=== PATIENT | male | born 1940 | race Caucasian/White ===

== ENCOUNTER 2020-09-13 15:06 | Inpatient (IN) ==
[2020-09-15] MEDS ORDERED: *HR* Dextrose 50 % in Water (Vial) 50 ML VIAL IVP PRN (19:58)
[2020-09-15] MEDS ORDERED: Dextrose Gel 15 GM/37.5 ML TUBE PO PRN ×2 (19:58)
[2020-09-15] MEDS ORDERED: D5% in Water 1,000 ML IVC PRN (19:58)
[2020-09-15] MEDS ORDERED: Insulin DETEMIR 100 UNIT/ML per UNIT SUBQ ONE (21:00)
[2020-09-15] MEDS: Sennosides/Docusate Sodium TABLET PO SCH (22:16)
[2020-09-16 06:23] LABS: Basophils # 0.1 K/mcL (0.0-0.2); Basophils % 0.7 %; Eosinophils # 0.7 K/mcL (0.0-0.6); Hematocrit 31.3 % (37.5-50.1); Immature Granulocytes % 0.3 % (0-4); Lymphocytes # 1.2 K/mcL (0.6-4.6); Lymphocytes % 14.1 %; Mean Corpuscular HGB Conc 31.9 g/dL (31.6-35.5); Mean Corpuscular Hemoglobin 27.6 pg (28.0-33.3); Mean Corpuscular Volume 86.5 fL (83.0-100.0); Monocytes # 0.8 K/mcL (0.0-1.3); Monocytes % 9.6 %; Neutrophils # 5.9 K/mcL (1.6-8.9); Platelet Count 226 K/mcL (140-400); Red Blood Count 3.62 M/mcL (4.19-5.50); Segmented Neutrophils % 67.3 %; White Blood Count 8.8 K/mcL (4.3-11.1)
[2020-09-16 06:36] LABS: BUN/Creatinine Ratio 18 (6-26); Blood Urea Nitrogen 9 mg/dL (8-23); Calcium 7.9 mg/dL (8.6-10.3); Carbon Dioxide 27 mEq/L (23-29); Chloride 102 mEq/L (98-107); Glucose 135 mg/dL (70-105); Osmolality,Calculated 285 (280-300); Potassium 3.2 mEq/L (3.5-5.1); Sodium 137 mEq/L (136-145); eGFR For African Americans > 60 (> 60); eGFR For Non-African Americans > 60 (> 60)
[2020-09-16] MEDS: Insulin LISPRO 300 UNITS/3 ML VIAL SUBQ SCH ×3 (09:01→16:25)
[2020-09-16] MEDS: GlipiZIDE 5 MG TABLET PO SCH ×2 (09:12→17:24)
[2020-09-16] MEDS: Sennosides/Docusate Sodium TABLET PO SCH ×2 (09:12→20:58)
[2020-09-16] MEDS: amLODIPine 5 MG TABLET PO SCH (09:12)
[2020-09-16] MEDS: Loratadine 10 MG TABLET PO SCH (09:12)
[2020-09-16] MEDS: lisinopriL 20 MG TABLET PO SCH (09:12)
[2020-09-16] MEDS: Multivit/Ca/Min/Fe/FA 1 TAB TABLET PO SCH (09:12)
[2020-09-16] MEDS: *HR* Metformin 500 MG TABLET PO SCH ×2 (09:12→17:24)
[2020-09-16] MEDS: Aspirin Enteric Coated 81 MG Tablet PO SCH (09:12)
[2020-09-16] MEDS: allopurinoL 300 MG TABLET PO SCH (09:12)
[2020-09-16] MEDS: Cholecalciferol (D-3) 1,000 UNIT (25MCG) TABLET PO SCH (09:13)
[2020-09-16] MEDS: Famotidine 20 MG TABLET PO SCH (09:13)
[2020-09-16] MEDS: Metoprolol XL (24 HR) Succ 50 MG TAB.ER.24H PO SCH (09:13)
[2020-09-16] MEDS: Insulin DETEMIR 100 UNIT/ML X5UNITS SUBQ SCH ×2 (09:13→20:59)
[2020-09-16 12:53] LABS: Estimated Average Glucose 174 mg/dl; Hemoglobin A1C 7.7 %
[2020-09-17] MEDS: *HR* Enoxaparin 40 MG/0.4 ML SYRINGE SQ SCH (04:46)
[2020-09-17 05:55] LABS: Basophils # 0.1 K/mcL (0.0-0.2); Basophils % 0.9 %; Eosinophils # 0.9 K/mcL (0.0-0.6); Eosinophils % 8.1 %; Hematocrit 32.4 % (37.5-50.1); Hemoglobin 10.5 g/dL (12.9-16.9); Immature Granulocytes % 0.3 % (0-4); Lymphocytes # 1.6 K/mcL (0.6-4.6); Lymphocytes % 14.6 %; Mean Corpuscular HGB Conc 32.4 g/dL (31.6-35.5); Mean Corpuscular Hemoglobin 27.9 pg (28.0-33.3); Mean Corpuscular Volume 85.9 fL (83.0-100.0); Mean Platelet Volume 9.6 fL (9.4-12.4); Monocytes # 1.1 K/mcL (0.0-1.3); Monocytes % 10.1 %; Platelet Count 259 K/mcL (140-400); Red Blood Count 3.77 M/mcL (4.19-5.50); Red Cell Distribution Width 17.1 % (11.5-14.5); White Blood Count 10.6 K/mcL (4.3-11.1)
[2020-09-17 06:14] LABS: BUN/Creatinine Ratio 26 (6-26); Blood Urea Nitrogen 12 mg/dL (8-23); Calcium 7.9 mg/dL (8.6-10.3); Carbon Dioxide 27 mEq/L (23-29); Chloride 105 mEq/L (98-107); Glucose 73 mg/dL (70-105); Osmolality,Calculated 286 (280-300); Potassium 3.2 mEq/L (3.5-5.1); Sodium 139 mEq/L (136-145); eGFR For African Americans > 60 (> 60); eGFR For Non-African Americans > 60 (> 60)
[2020-09-17] MEDS: Insulin DETEMIR 100 UNIT/ML X5UNITS SUBQ SCH ×2 (08:51→21:31)
[2020-09-17] MEDS: Insulin LISPRO 300 UNITS/3 ML VIAL SUBQ SCH ×3 (08:51→16:34)
[2020-09-17] MEDS: Loratadine 10 MG TABLET PO SCH (09:01)
[2020-09-17] MEDS: amLODIPine 5 MG TABLET PO SCH (09:01)
[2020-09-17] MEDS: Aspirin Enteric Coated 81 MG Tablet PO SCH (09:01)
[2020-09-17] MEDS: Metoprolol XL (24 HR) Succ 50 MG TAB.ER.24H PO SCH (09:02)
[2020-09-17] MEDS: allopurinoL 300 MG TABLET PO SCH (09:02)
[2020-09-17] MEDS: Cholecalciferol (D-3) 1,000 UNIT (25MCG) TABLET PO SCH (09:02)
[2020-09-17] MEDS: Multivit/Ca/Min/Fe/FA 1 TAB TABLET PO SCH (09:02)
[2020-09-17] MEDS: GlipiZIDE 5 MG TABLET PO SCH ×2 (09:02→17:16)
[2020-09-17] MEDS: lisinopriL 20 MG TABLET PO SCH (09:02)
[2020-09-17] MEDS: Sennosides/Docusate Sodium TABLET PO SCH ×2 (09:02→21:30)
[2020-09-17] MEDS: Famotidine 20 MG TABLET PO SCH (09:02)
[2020-09-17] MEDS: *HR* Metformin 500 MG TABLET PO SCH ×2 (09:02→17:16)
[2020-09-18] MEDS: *HR* Enoxaparin 40 MG/0.4 ML SYRINGE SQ SCH (05:50)
[2020-09-18] MEDS: Insulin LISPRO 300 UNITS/3 ML VIAL SUBQ SCH ×3 (08:25→16:29)
[2020-09-18] MEDS: Loratadine 10 MG TABLET PO SCH (09:56)
[2020-09-18] MEDS: *HR* Metformin 500 MG TABLET PO SCH ×2 (09:56→17:47)
[2020-09-18] MEDS: Multivit/Ca/Min/Fe/FA 1 TAB TABLET PO SCH (09:56)
[2020-09-18] MEDS: GlipiZIDE 5 MG TABLET PO SCH ×2 (09:56→17:47)
[2020-09-18] MEDS: Sennosides/Docusate Sodium TABLET PO SCH ×2 (09:56→20:45)
[2020-09-18] MEDS: allopurinoL 300 MG TABLET PO SCH (09:57)
[2020-09-18] MEDS: Metoprolol XL (24 HR) Succ 50 MG TAB.ER.24H PO SCH (09:57)
[2020-09-18] MEDS: amLODIPine 5 MG TABLET PO SCH (09:57)
[2020-09-18] MEDS: Aspirin Enteric Coated 81 MG Tablet PO SCH (09:57)
[2020-09-18] MEDS: lisinopriL 20 MG TABLET PO SCH (09:57)
[2020-09-18] MEDS: Cholecalciferol (D-3) 1,000 UNIT (25MCG) TABLET PO SCH (09:57)
[2020-09-18] MEDS: Famotidine 20 MG TABLET PO SCH (09:57)
[2020-09-18] MEDS: Insulin DETEMIR 100 UNIT/ML X5UNITS SUBQ SCH (09:58)
[2020-09-19] MEDS: *HR* Enoxaparin 40 MG/0.4 ML SYRINGE SQ SCH (04:06)
[2020-09-19] MEDS: Insulin LISPRO 300 UNITS/3 ML VIAL SUBQ SCH ×3 (07:52→16:50)
[2020-09-19] MEDS: Cholecalciferol (D-3) 1,000 UNIT (25MCG) TABLET PO SCH (08:34)
[2020-09-19] MEDS: GlipiZIDE 5 MG TABLET PO SCH ×2 (08:34→17:27)
[2020-09-19] MEDS: Sennosides/Docusate Sodium TABLET PO SCH ×2 (08:34→19:47)
[2020-09-19] MEDS: Aspirin Enteric Coated 81 MG Tablet PO SCH (08:34)
[2020-09-19] MEDS: lisinopriL 20 MG TABLET PO SCH (08:35)
[2020-09-19] MEDS: amLODIPine 5 MG TABLET PO SCH (08:35)
[2020-09-19] MEDS: Famotidine 20 MG TABLET PO SCH (08:35)
[2020-09-19] MEDS: Metoprolol XL (24 HR) Succ 50 MG TAB.ER.24H PO SCH (08:35)
[2020-09-19] MEDS: Multivit/Ca/Min/Fe/FA 1 TAB TABLET PO SCH (08:35)
[2020-09-19] MEDS: *HR* Metformin 500 MG TABLET PO SCH ×2 (08:35→17:27)
[2020-09-19] MEDS: Loratadine 10 MG TABLET PO SCH (08:35)
[2020-09-19] MEDS: allopurinoL 300 MG TABLET PO SCH (08:35)
[2020-09-20] MEDS: *HR* Enoxaparin 40 MG/0.4 ML SYRINGE SQ SCH (06:22)
[2020-09-20] MEDS: Insulin LISPRO 300 UNITS/3 ML VIAL SUBQ SCH ×3 (07:47→16:29)
[2020-09-20] MEDS: GlipiZIDE 5 MG TABLET PO SCH ×2 (08:02→17:11)
[2020-09-20] MEDS: Loratadine 10 MG TABLET PO SCH (08:02)
[2020-09-20] MEDS: Metoprolol XL (24 HR) Succ 50 MG TAB.ER.24H PO SCH (08:02)
[2020-09-20] MEDS: Famotidine 20 MG TABLET PO SCH (08:02)
[2020-09-20] MEDS: Aspirin Enteric Coated 81 MG Tablet PO SCH (08:02)
[2020-09-20] MEDS: Sennosides/Docusate Sodium TABLET PO SCH (08:02)
[2020-09-20] MEDS: amLODIPine 5 MG TABLET PO SCH (08:03)
[2020-09-20] MEDS: Cholecalciferol (D-3) 1,000 UNIT (25MCG) TABLET PO SCH (08:03)
[2020-09-20] MEDS: Multivit/Ca/Min/Fe/FA 1 TAB TABLET PO SCH (08:03)
[2020-09-20] MEDS: lisinopriL 20 MG TABLET PO SCH (08:03)
[2020-09-20] MEDS: allopurinoL 300 MG TABLET PO SCH (08:03)
[2020-09-20] MEDS: *HR* Metformin 500 MG TABLET PO SCH ×2 (08:03→17:13)
[2020-09-20] MEDS ORDERED: Sennosides/Docusate Sodium TABLET PO PRN (13:30)
[2020-09-21] MEDS: *HR* Enoxaparin 40 MG/0.4 ML SYRINGE SQ SCH (04:03)
[2020-09-21] MEDS: Insulin LISPRO 300 UNITS/3 ML VIAL SUBQ SCH ×3 (08:33→18:03)
[2020-09-21] MEDS: allopurinoL 300 MG TABLET PO SCH (08:34)
[2020-09-21] MEDS: Aspirin Enteric Coated 81 MG Tablet PO SCH (08:34)
[2020-09-21] MEDS: Cholecalciferol (D-3) 1,000 UNIT (25MCG) TABLET PO SCH (08:34)
[2020-09-21] MEDS: Metoprolol XL (24 HR) Succ 50 MG TAB.ER.24H PO SCH (08:34)
[2020-09-21] MEDS: GlipiZIDE 5 MG TABLET PO SCH ×2 (08:34→16:27)
[2020-09-21] MEDS: Loratadine 10 MG TABLET PO SCH (08:34)
[2020-09-21] MEDS: amLODIPine 5 MG TABLET PO SCH (08:34)
[2020-09-21] MEDS: lisinopriL 20 MG TABLET PO SCH (08:34)
[2020-09-21] MEDS: *HR* Metformin 500 MG TABLET PO SCH ×2 (08:34→16:27)
[2020-09-21] MEDS: Multivit/Ca/Min/Fe/FA 1 TAB TABLET PO SCH (08:34)
[2020-09-21] MEDS: Famotidine 20 MG TABLET PO SCH (08:41)
[2020-09-22 05:18] LABS: Hemoglobin 9.4 g/dL (12.9-16.9); Mean Corpuscular HGB Conc 31.3 g/dL (31.6-35.5); Mean Corpuscular Hemoglobin 27.4 pg (28.0-33.3); Mean Corpuscular Volume 87.5 fL (83.0-100.0); Mean Platelet Volume 9.5 fL (9.4-12.4); Platelet Count 375 K/mcL (140-400); Red Blood Count 3.43 M/mcL (4.19-5.50); Red Cell Distribution Width 16.7 % (11.5-14.5); White Blood Count 13.4 K/mcL (4.3-11.1)
[2020-09-22] MEDS: *HR* Enoxaparin 40 MG/0.4 ML SYRINGE SQ SCH (05:21)
[2020-09-22 05:31] LABS: Alanine Aminotransferase 13 Units/L (7-52); Albumin 2.5 g/dL (3.5-5.7); Albumin/Globulin Ratio 0.9 (1.1-2.2); Alkaline Phosphatase 132 Units/L (34-104); Aspartate Amino Transferase 13 Units/L (13-39); BUN/Creatinine Ratio 24 (6-26); Bilirubin,Total 0.3 mg/dL (0.3-1.0); Blood Urea Nitrogen 12 mg/dL (8-23); Calcium 8.2 mg/dL (8.6-10.3); Carbon Dioxide 27 mEq/L (23-29); Chloride 108 mEq/L (98-107); Globulin 2.7 g/dL (2.4-3.5); Glucose 127 mg/dL (70-105); Magnesium 1.6 mg/dL (1.6-2.6); Osmolality,Calculated 289 (280-300); Potassium 3.7 mEq/L (3.5-5.1); Sodium 139 mEq/L (136-145); Total Protein 5.2 g/dL (6.4-8.9); eGFR For African Americans > 60 (> 60); eGFR For Non-African Americans > 60 (> 60)
[2020-09-22] MEDS: Insulin LISPRO 300 UNITS/3 ML VIAL SUBQ SCH ×3 (07:43→16:49)
[2020-09-22] MEDS: amLODIPine 5 MG TABLET PO SCH (08:25)
[2020-09-22] MEDS: GlipiZIDE 5 MG TABLET PO SCH ×2 (08:25→16:47)
[2020-09-22] MEDS: Cholecalciferol (D-3) 1,000 UNIT (25MCG) TABLET PO SCH (08:25)
[2020-09-22] MEDS: Aspirin Enteric Coated 81 MG Tablet PO SCH (08:26)
[2020-09-22] MEDS: *HR* Metformin 500 MG TABLET PO SCH ×2 (08:26→16:48)
[2020-09-22] MEDS: Metoprolol XL (24 HR) Succ 50 MG TAB.ER.24H PO SCH (08:26)
[2020-09-22] MEDS: lisinopriL 20 MG TABLET PO SCH (08:27)
[2020-09-22] MEDS: Famotidine 20 MG TABLET PO SCH (08:27)
[2020-09-22] MEDS: Multivit/Ca/Min/Fe/FA 1 TAB TABLET PO SCH (08:28)
[2020-09-22] MEDS: allopurinoL 300 MG TABLET PO SCH (08:28)
[2020-09-22] MEDS: Loratadine 10 MG TABLET PO SCH (08:28)
[2020-09-23] MEDS: *HR* Enoxaparin 40 MG/0.4 ML SYRINGE SQ SCH (05:40)
[2020-09-23] MEDS: Insulin LISPRO 300 UNITS/3 ML VIAL SUBQ SCH ×3 (08:53→16:42)
[2020-09-23] MEDS: Multivit/Ca/Min/Fe/FA 1 TAB TABLET PO SCH (09:02)
[2020-09-23] MEDS: allopurinoL 300 MG TABLET PO SCH (09:02)
[2020-09-23] MEDS: Loratadine 10 MG TABLET PO SCH (09:02)
[2020-09-23] MEDS: GlipiZIDE 5 MG TABLET PO SCH ×2 (09:02→15:42)
[2020-09-23] MEDS: lisinopriL 20 MG TABLET PO SCH (09:02)
[2020-09-23] MEDS: amLODIPine 5 MG TABLET PO SCH (09:02)
[2020-09-23] MEDS: Metoprolol XL (24 HR) Succ 50 MG TAB.ER.24H PO SCH (09:02)
[2020-09-23] MEDS: Cholecalciferol (D-3) 1,000 UNIT (25MCG) TABLET PO SCH (09:03)
[2020-09-23] MEDS: *HR* Metformin 500 MG TABLET PO SCH ×2 (09:03→15:42)
[2020-09-23] MEDS: Aspirin Enteric Coated 81 MG Tablet PO SCH (09:03)
[2020-09-23] MEDS: Famotidine 20 MG TABLET PO SCH (09:03)
[2020-09-23] MEDS ORDERED: Furosemide 20 MG TABLET PO ONE (15:29)
[2020-09-24] MEDS: *HR* Enoxaparin 40 MG/0.4 ML SYRINGE SQ SCH ×2 (04:25→12:10)
[2020-09-24] MEDS: Insulin LISPRO 300 UNITS/3 ML VIAL SUBQ SCH ×3 (07:56→16:58)
[2020-09-24] MEDS: Cholecalciferol (D-3) 1,000 UNIT (25MCG) TABLET PO SCH (09:00)
[2020-09-24] MEDS: Aspirin Enteric Coated 81 MG Tablet PO SCH (09:00)
[2020-09-24] MEDS: amLODIPine 5 MG TABLET PO SCH (09:00)
[2020-09-24] MEDS: GlipiZIDE 5 MG TABLET PO SCH ×2 (09:00→16:58)
[2020-09-24] MEDS: Loratadine 10 MG TABLET PO SCH (09:00)
[2020-09-24] MEDS: lisinopriL 20 MG TABLET PO SCH (09:01)
[2020-09-24] MEDS: allopurinoL 300 MG TABLET PO SCH (09:01)
[2020-09-24] MEDS: Metoprolol XL (24 HR) Succ 50 MG TAB.ER.24H PO SCH (09:01)
[2020-09-24] MEDS: *HR* Metformin 500 MG TABLET PO SCH ×2 (09:01→16:58)
[2020-09-24] MEDS: Famotidine 20 MG TABLET PO SCH (09:01)
[2020-09-24] MEDS: Multivit/Ca/Min/Fe/FA 1 TAB TABLET PO SCH (09:01)
[2020-09-25] MEDS: *HR* Enoxaparin 40 MG/0.4 ML SYRINGE SQ SCH ×2 (04:48→04:58)
[2020-09-25] MEDS: GlipiZIDE 5 MG TABLET PO SCH ×2 (08:34→17:01)
[2020-09-25] MEDS: *HR* Metformin 500 MG TABLET PO SCH ×2 (08:34→17:01)
[2020-09-25] MEDS: Aspirin Enteric Coated 81 MG Tablet PO SCH (08:34)
[2020-09-25] MEDS: amLODIPine 5 MG TABLET PO SCH (08:34)
[2020-09-25] MEDS: Loratadine 10 MG TABLET PO SCH (08:34)
[2020-09-25] MEDS: allopurinoL 300 MG TABLET PO SCH (08:34)
[2020-09-25] MEDS: Cholecalciferol (D-3) 1,000 UNIT (25MCG) TABLET PO SCH (08:34)
[2020-09-25] MEDS: Metoprolol XL (24 HR) Succ 50 MG TAB.ER.24H PO SCH (08:34)
[2020-09-25] MEDS: lisinopriL 20 MG TABLET PO SCH (08:34)
[2020-09-25] MEDS: Multivit/Ca/Min/Fe/FA 1 TAB TABLET PO SCH (08:34)
[2020-09-25] MEDS: Famotidine 20 MG TABLET PO SCH (08:34)
[2020-09-25] MEDS: Insulin LISPRO 300 UNITS/3 ML VIAL SUBQ SCH ×3 (08:35→16:49)
[2020-09-25] MEDS ORDERED: (Dulaglutide [Trulicity] 1.5 MG/0.5 ML Pen.Injctr) SQ SCH (18:00)
[2020-09-26] MEDS: *HR* Enoxaparin 40 MG/0.4 ML SYRINGE SQ SCH (04:40)
[2020-09-26 05:10] LABS: Basophils # 0.2 K/mcL (0.0-0.2); Basophils % 1.2 %; Eosinophils # 1.5 K/mcL (0.0-0.6); Eosinophils % 11.9 %; Hematocrit 29.9 % (37.5-50.1); Hemoglobin 9.4 g/dL (12.9-16.9); Immature Granulocytes % 0.4 % (0-4); Lymphocytes # 1.8 K/mcL (0.6-4.6); Lymphocytes % 14.5 %; Mean Corpuscular HGB Conc 31.4 g/dL (31.6-35.5); Mean Corpuscular Hemoglobin 27.7 pg (28.0-33.3); Mean Corpuscular Volume 88.2 fL (83.0-100.0); Mean Platelet Volume 9.5 fL (9.4-12.4); Monocytes # 0.8 K/mcL (0.0-1.3); Monocytes % 6.7 %; Neutrophils # 8.1 K/mcL (1.6-8.9); Platelet Count 390 K/mcL (140-400); Red Blood Count 3.39 M/mcL (4.19-5.50); Red Cell Distribution Width 16.8 % (11.5-14.5); Segmented Neutrophils % 65.3 %; White Blood Count 12.4 K/mcL (4.3-11.1)
[2020-09-26 05:26] LABS: BUN/Creatinine Ratio 24 (6-26); Blood Urea Nitrogen 12 mg/dL (8-23); Calcium 8.2 mg/dL (8.6-10.3); Carbon Dioxide 27 mEq/L (23-29); Chloride 108 mEq/L (98-107); Glucose 94 mg/dL (70-105); Osmolality,Calculated 290 (280-300); Potassium 3.7 mEq/L (3.5-5.1); Sodium 140 mEq/L (136-145); eGFR For African Americans > 60 (> 60); eGFR For Non-African Americans > 60 (> 60)
[2020-09-26 07:01] VITALS: BP 125/75
[2020-09-26] MEDS: Insulin LISPRO 300 UNITS/3 ML VIAL SUBQ SCH (08:03)
[2020-09-26] MEDS: Cholecalciferol (D-3) 1,000 UNIT (25MCG) TABLET PO SCH (08:08)
[2020-09-26] MEDS: Aspirin Enteric Coated 81 MG Tablet PO SCH (08:09)
[2020-09-26] MEDS: Famotidine 20 MG TABLET PO SCH (08:09)
[2020-09-26] MEDS: lisinopriL 20 MG TABLET PO SCH (08:09)
[2020-09-26] MEDS: GlipiZIDE 5 MG TABLET PO SCH (08:09)
[2020-09-26] MEDS: amLODIPine 5 MG TABLET PO SCH (08:09)
[2020-09-26] MEDS: *HR* Metformin 500 MG TABLET PO SCH (08:09)
[2020-09-26] MEDS: Multivit/Ca/Min/Fe/FA 1 TAB TABLET PO SCH (08:09)
[2020-09-26] MEDS: Loratadine 10 MG TABLET PO SCH (08:09)
[2020-09-26] MEDS: Metoprolol XL (24 HR) Succ 50 MG TAB.ER.24H PO SCH (08:09)
[2020-09-26] MEDS: allopurinoL 300 MG TABLET PO SCH (08:09)
== END 2020-09-26 12:51 | disposition home or self-care (01) | DRG 945 ==
LOC: INPGRE 09-15 16:59
PROVIDERS: ADMIT Family Medicine; ATTEND Family Medicine